=== PATIENT | female | born 1950 | race Caucasian/White ===

== ENCOUNTER 2018-12-22 12:21 | Emergency (ER) | payer OTHER ==
[2018-12-22 16:31] LABS: ADD MAN DIFF? NO
[2018-12-22 16:35] LABS: BASOPHILS % 0.9 % (0.0-2.0); EOSINOPHILS % 0.7 % (0.0-7.0); HEMATOCRIT 33.1 % (37.0-47.0); HEMOGLOBIN 10.6 g/dl (12.0-16.0); LYMPHOCYTES # 1.4 10^3/ul (0.8-2.9); LYMPHOCYTES % 30.4 % (15.0-51.0); MEAN CORPUSCULAR HEMOGLOBIN 29.4 pg (29.0-33.0); MEAN CORPUSCULAR VOLUME 91.9 fl (82.0-101.0); MEAN PLATELET VOLUME 10.3 fl (7.4-10.4); MONOCYTE # 0.3 10^3/ul (0.3-0.9); MONOCYTES % 7.1 % (0.0-11.0); NEUTROPHIL # 2.7 10^3/ul (1.6-7.5); NEUTROPHILS % 60.7 % (39.0-77.0); PLATELET COUNT 113 10^3/UL (140-415); RED CELL DISTRIBUTION WIDTH 14.1 % (11.5-14.5)
[2018-12-22 16:35] LABS: WHITE BLOOD COUNT 4.5 10^3/ul (4.8-10.8)
[2018-12-22 16:52] LABS: INR 1.03; PROTIME 13.6 Sec (11.9-14.9); PT RATIO 1.1
[2018-12-22 16:53] LABS: PARTIAL THROMBOPLASTIN TIME 27.7 Sec (23.0-35.0)
[2018-12-22 16:54] LABS: ALANINE AMINOTRANSFERASE 55 IU/L (13-69); ALBUMIN 3.3 g/dl (3.3-4.9); ALBUMIN/GLOBULIN RATIO 0.86; ALKALINE PHOSPHATASE 287 IU/L (42-121); ANION GAP 6 (5-13); ASPARTATE AMINO TRANSFERASE 63 IU/L (15-46); BILIRUBIN,INDIRECT 0.2 mg/dl (0-1.1); BILIRUBIN,TOTAL 0.2 mg/dl (0.2-1.3); BLOOD UREA NITROGEN 11 mg/dl (7-20); CALCIUM 9.4 mg/dl (8.4-10.2); CARBON DIOXIDE 30 mmol/L (21-31); CHLORIDE 104 mmol/L (97-110); CREATININE 0.56 mg/dl (0.44-1.00); Estimated GFR > 60 mL/min (>60); GLUCOSE 106 mg/dl (70-220); SODIUM 140 mmol/L (135-144); TOTAL PROTEIN 7.1 g/dl (6.1-8.1)
[2018-12-22] MEDS: FUROSEMIDE 20 MG TAB PO (17:26)
== END 2018-12-22 17:35 | disposition home or self-care (01) ==
LOC: E/R 12:21
DX: D61.818 Other pancytopenia (principal); R60.9 Edema, unspecified; Z79.84 Long term (current) use of oral hypoglycemic drugs
CPT/HCPCS: 36415; 71045; 80053; 85025; 85610; 85730; 93970; 99284-25

== ENCOUNTER 2019-03-18 17:32 | Emergency (ER) | payer OTHER ==
[2019-03-18] MEDS: ACETAMINOPHEN 500 MG TAB PO (18:58)
== END 2019-03-18 20:25 | disposition home or self-care (01) ==
LOC: FTE 17:32
DX: M25.562 Pain in left knee (principal); E11.9 Type 2 diabetes mellitus without complications; Z79.84 Long term (current) use of oral hypoglycemic drugs
CPT/HCPCS: 73562; 99283-25